=== PATIENT | male | born 1945 | race Caucasian/White ===

== ENCOUNTER → 2018-05-17 | Outpatient (CLI) | payer MEDICARE, BC ==
[~2018-05-17] MED LIST: AMOX1TAB3 PO; ASA; ASP325 PO; ATR10 PO; AVADART; AVADART PO; DOFE500C3 PO; DUTA0.5C4; LIPITOR; LOR5/325 PO; METO50TA19 PO; OMEG-23 PO; WARF2.5T62 PO
--- NOTE | 2018-05-17 15:05 | RADIOLOGY IMAGING REPORT ---
FACILITY: PATIENT NAME: Jose Alejandro Sales : 1945 MR: [id number] V: [id number] EXAM DATE: ORDERING PHYSICIAN: JEANNINE ANTHONY TECHNOLOGIST: [place]: [facility] [place]: Jose Alejandro Sales : 1945 Visit/Account:[id number] Date of Sevice: 05/17/2018 EXAMINATION: Right hand radiographs 2 views HISTORY: Right hand pain proximal to right 1st finger COMPARISON: None. FINDINGS: PA, lateral and oblique views of the right hand are obtained. Bones: No acute fracture or dislocation. Joint spaces: Negative. Hardware: None. Alignment: Normal. Soft tissues: Negative. IMPRESSION: No acute right hand fracture. Report Dictated By: Chitra Son MD at 05/17/2018 2:59 PM Report E-Signed By: Chitra Son MD at 05/17/2018 3:00 PM WSN:[email or web address]
== END ==
LOC: RAD 14:16
PROVIDERS: ATTEND Nurse Practitioner Family
DX: M79.641 Pain in right hand (principal)

== ENCOUNTER 2018-07-24 08:39 | Observation (INO) | payer MEDICARE, BC ==
[~2018-07-24] VITALS: Ht 177.8 cm; Wt 77.1 kg
[~2018-07-24 08:39] MED LIST changes: +ASCO-182 PO; +CHOL10005 PO; +L.AC1CAP6; +MULT1CAP59 PO; +SAW450CA3 PO
[2018-07-24] MEDS ORDERED: ACTIVATED CHAR/SORB 25GM/120ML PO ONE (08:40)
--- NOTE | 2018-07-24 08:54 | EKG ---
FACILITY: [facility] PATIENT NAME: MARTIR FIELD : [id number] MR: [id number] V: [id number] EXAM DATE: ORDERING PHYSICIAN: KIRAN LEUNG TECHNOLOGIST: LORNA Test Reason : OD Blood Pressure : / mmHG Vent. Rate : 072 BPM Atrial Rate : 072 BPM P-R Int : 204 ms QRS Dur : 094 ms QT Int : 432 ms P-R-T Axes : 053 001 044 degrees QTc Int : 473 ms Sinus rhythm Slightly prolonged QTc Nonspecific ST abnormality Abnormal ECG When compared with ECG of 31-MAY-2016 14:52, No significant change was found Confirmed by BETH PALMER ([id number]) on 07/24/2018 5:15:20 PM Referred By: MADHU Confirmed By:BETH PALMER
--- NOTE | 2018-07-24 09:12 | ER Report ---
History and Physical Time Seen By MD: 08:45 Hx. of Stated Complaint: patient reports taking his tikosyn .5mg. at 0630 then accidentally taking another at 0830. poison control recomended coming in for evaluation. no symptoms noticed at this time HPI/ROS CHIEF COMPLAINT: Accidental overdose HISTORY OF PRESENT ILLNESS: 9-year-old male on a cardiac dysrhythmic calcium channel concetta medications. Take 500 mg twice a day mistakenly took a 2nd dose within 1 hour. Patient called poison control poison control notified him to come to emergency emergently to the emergency department due to the fact this can cause torsade de pointes and other cardiac abnormalities dysrhythmias essentially needing activated charcoal. Patient has no symptoms at time of arrival no shortness of breath nausea vomiting diarrhea fever chills no chest pain or palpitations. Patient on arrival was given activated charcoal emergently. Patient has no additional complaints REVIEW OF SYSTEMS: Respiratory: No cough, no dyspnea. Cardiovascular: No chest pain, no palpitations. Gastrointestinal: No vomiting, no abdominal pain. Musculoskeletal: No back pain. Remainder of the 14 system rev: Yes Allergies: Coded Allergies: Sulfa (Sulfonamide Antibiotics) (Verified Allergy, Mild, 05/31/16) aspirin (Verified Allergy, Mild, 05/31/16) caffeine (Verified Allergy, Mild, 05/31/16) orphenadrine (Verified Allergy, Mild, 05/31/16) flecainide (Unverified Allergy, Unknown, 07/17/18) Uncoded Allergies: ERYTHRYOMYCIN (Allergy, Mild, 03/14/08) Home Meds Reported Medications Cholecalciferol (Vitamin D3) (VITAMIN D3) Unknown Strength Tablet, PO, TAB 07/17/18 Ascorbic Acid (VITAMIN C) Unknown Strength Tablet, PO, TAB 07/17/18 L.acidoph & Paracasei,B.lactis (Probiotic) Unknown Strength Capsule 07/17/18 Saw [place] Fruit (SAW PALMETTO) Unknown Strength Capsule, PO, CAPSULE 07/17/18 Multivitamin (MULTIVITAMINS) Unknown Strength Capsule, PO, CAPSULE 07/17/18 Metoprolol Succinate (METOPROLOL SUCCINATE) 50 Mg Tab.er.24h, 1 TAB PO QDAY PRN for FEELS HIS FLUTTER, TAB 05/31/16 Dutasteride (Dutasteride) 0.5 Mg Capsule, QDAY 05/31/16 Dofetilide (TIKOSYN) 500 Mcg Capsule, 500 MCG PO DAILY, CAPSULE 06/02/13 [place]-3 Fatty Acids/Fish Oil (FISH OIL 1,000 MG SOFTGEL) 1 Each Capsule, 1 EACH PO BID, CAPSULE 06/02/13 Warfarin Sodium (COUMADIN) 2.5 Mg Tablet, 5 MG PO QDAY It is very important that you take your coumadin exactly as prescribed, have blood work to monitor your PT/INR values, and follow up with your health care provider as prescribed. Diet and medication can affect the PT/INR level. Keep your diet pretty much the same day to day. Many foods contain Vitamin K which helps blood to clot and can affect the way your coumadin works. You don't need to avoid foods that have Vitamin K, but you do need to eat about the same amount of them every day. Be sure to tell your provider before changing your diet for anyreason (weight loss, illness, etc.) Do not start or discontinue any medications, prescribed or over the counter, except on the advise of your provider orpharmacist. Coumadin (Warfarin) increases the risk of bleeding. 5 MG 5 DAYS, AND 2.5 MON AND FRI 07/21/12 [Avadart] No Conflict Check, 0.5 MG PO DAILY, 0 Refills 08/18/08 Atorvastatin (Lipitor) 10 Mg Tab, 10 MG PO PRN, 0 Refills 08/18/08 Reviewed Nurses Notes: Yes Old Medical Records Reviewed: Yes Hx Smoking: No Hx Substance Use Disorder: No Hx Alcohol Use: No Constitutional Vital Sign - Last 24 Hours 07/24/18 07/24/18 07/24/18 07/24/18 08:42 08:43 08:54 09:00 Temp 98.2 Pulse 76 67 Resp 16 11 B/P (MAP) 173/95 173/95 (121) 164/92 (116) Pulse Ox 97 98 O2 Delivery Room Air 07/24/18 07/24/18 07/24/18 07/24/18 09:09 09:29 09:30 09:44 Pulse 59 55 54 Resp 21 21 11 B/P (MAP) 138/81 (100) Pulse Ox 95 93 91 07/24/18 07/24/18 07/24/18 07/24/18 09:59 10:00 10:14 10:29 Pulse 54 55 56 Resp 9 13 11 B/P (MAP) 129/94 (106) Pulse Ox 94 93 93 07/24/18 10:30 B/P (MAP) 140/85 (103) Physical Exam General Appearance: The patient is alert, has no immediate need for airway pr otection and no current signs of toxicity. [ ] Eyes: Pupils equal and round no injection. Respiratory: Chest is non tender, lungs are clear to auscultation. Cardiac: regular rate and rhythm [ ] Gastrointestinal: Abdomen is soft and non tender, no masses, bowel sounds normal. Musculoskeletal: Neck: Neck is supple and non tender. Extremities have full range of motion and are non tender. Skin: No rashes or lesions. [ ] DIFFERENTIAL DIAGNOSIS: After history and physical exam differential diagnosis was considered for cardiac dysrhythmia cardiac abnormalities Medical Decision Making Data Points Result Diagram: 07/24/18 0000 07/24/18 0000 Laboratory Hematology Test 07/24/18 00:00 Red Blood Count 5.56 M/uL (4.00-5.60) Mean Corpuscular Volume 86.7 fL (80.0-96.0) Mean Corpuscular Hemoglobin 29.3 pg (26.0-33.0) Mean Corpuscular Hemoglobin Concent 33.8 g/dL (32.0-36.0) Red Cell Distribution Width 12.9 % (11.5-14.5) Mean Platelet Volume 7.9 fL (7.2-11.1) Neutrophils (%) (Auto) 51.1 % (39.4-72.5) Lymphocytes (%) (Auto) 33.4 % (17.6-49.6) Monocytes (%) (Auto) 11.5 % (4.1-12.4) Eosinophils (%) (Auto) 2.9 % (0.4-6.7) Basophils (%) (Auto) 1.1 % (0.3-1.4) Nucleated RBC Relative Count (auto) 0.1 /100WBC Neutrophils # (Auto) 2.4 K/uL (2.0-7.4) Lymphocytes # (Auto) 1.5 K/uL (1.3-3.6) Monocytes # (Auto) 0.5 K/uL (0.3-1.0) Eosinophils # (Auto) 0.1 K/uL (0.0-0.5) Basophils # (Auto) 0.1 K/uL (0.0-0.1) Nucleated RBC Absolute Count (auto) 0.00 K/uL Sodium Level 139 mmol/L (137-145) Potassium Level 3.7 mmol/L (3.5-5.0) Chloride Level 105 mmol/L (98-107) Carbon Dioxide Level 23 mmol/L (22-30) Blood Urea Nitrogen 15 mg/dl (9-21) Creatinine 1.00 mg/dl (0.66-1.25) Glomerular Filtration Rate Calc > 60.0 Random Glucose 98 mg/dl (75-110) Calcium Level 9.1 mg/dl (8.4-10.2) Total Bilirubin 1.1 mg/dl (0.2-1.3) Aspartate Amino Transf (AST/SGOT) 48 U/L (0-35) Alanine Aminotransferase (ALT/SGPT) 48 U/L (0-56) Alkaline Phosphatase 94 U/L (0-126) Troponin I < 0.012 ng/ml Total Protein 7.3 g/dl (6.3-8.2) Albumin 4.7 g/dl (3.5-5.0) Chemistry Test 07/24/18 00:00 White Blood Count 4.6 k/uL (4.5-11.0) Red Blood Count 5.56 M/uL (4.00-5.60) Hemoglobin 16.3 g/dL (14.0-18.0) Hematocrit 48.2 % (42.0-52.0) Mean Corpuscular Volume 86.7 fL (80.0-96.0) Mean Corpuscular Hemoglobin 29.3 pg (26.0-33.0) Mean Corpuscular Hemoglobin Concent 33.8 g/dL (32.0-36.0) Red Cell Distribution Width 12.9 % (11.5-14.5) Platelet Count 197 K/uL (150-450) Mean Platelet Volume 7.9 fL (7.2-11.1) Neutrophils (%) (Auto) 51.1 % (39.4-72.5) Lymphocytes (%) (Auto) 33.4 % (17.6-49.6) Monocytes (%) (Auto) 11.5 % (4.1-12.4) Eosinophils (%) (Auto) 2.9 % (0.4-6.7) Basophils (%) (Auto) 1.1 % (0.3-1.4) Nucleated RBC Relative Count (auto) 0.1 /100WBC Neutrophils # (Auto) 2.4 K/uL (2.0-7.4) Lymphocytes # (Auto) 1.5 K/uL (1.3-3.6) Monocytes # (Auto) 0.5 K/uL (0.3-1.0) Eosinophils # (Auto) 0.1 K/uL (0.0-0.5) Basophils # (Auto) 0.1 K/uL (0.0-0.1) Nucleated RBC Absolute Count (auto) 0.00 K/uL Glomerular Filtration Rate Calc > 60.0 Calcium Level 9.1 mg/dl (8.4-10.2) Total Bilirubin 1.1 mg/dl (0.2-1.3) Aspartate Amino Transf (AST/SGOT) 48 U/L (0-35) Alanine Aminotransferase (ALT/SGPT) 48 U/L (0-56) Alkaline Phosphatase 94 U/L (0-126) Troponin I < 0.012 ng/ml Total Protein 7.3 g/dl (6.3-8.2) Albumin 4.7 g/dl (3.5-5.0) ED Course/Re-evaluation ED Course ED clinical course 72-year-old male came emergency department today after taking a calcium channel concetta for his abnormal cardiac rate and rhythm due to much at one time which is toxic cause QT prolongation and possibly torsades sent here by poison control and evaluation received activated charcoal his QTC has elongated since she's been here not significantly and not a critical matter but deftly more than one was when he arrived we'll admit him today for an observation serial EKGs and follow up with hospitalist Decision to Disposition Date: Jul 24, 2018 Decision to Disposition Time: 12:06 Depart Departure Latest Vital Signs Vital Signs Date Time Temp Pulse Resp B/P (MAP) Pulse Ox O2 Delivery O2 Flow Rate FiO2 07/24/18 10:30 140/85 (103) 07/24/18 10:29 56 11 93 07/24/18 08:42 98.2 Room Air Impression: Primary Impression: Dysrhythmia Condition: Improved Disposition: Admitted from ER Referrals: JEANNINE ANTHONY (PCP) KIRAN LEUNG MD Jul 24, 2018 09:12
[2018-07-24 09:17] LABS: PLATELET COUNT, AUTOMATED 197 K/uL (150-450)
--- NOTE | 2018-07-24 10:48 | EKG ---
[place] [facility] [place] MARTIR FIELD : [id number] MR: [id number] V: [id number] EXAM DATE: ORDERING PHYSICIAN: KIRAN LEUNG TECHNOLOGIST: LORNA Test Reason : REPEAT Blood Pressure : / mmHG Vent. Rate : 057 BPM Atrial Rate : 057 BPM P-R Int : 216 ms QRS Dur : 092 ms QT Int : 496 ms P-R-T Axes : 035 -05 011 degrees QTc Int : 482 ms Sinus bradycardia with 1st degree AV block Prolonged QT Abnormal ECG When compared with ECG of 24-JUL-2018 08:39, No significant change was found Confirmed by BETH PALMER ([id number]) on 07/24/2018 5:15:44 PM Referred By: MADHU Confirmed By:BETH PALMER
--- NOTE | 2018-07-24 13:06 | EKG ---
FACILITY: [facility] PATIENT NAME: MARTIR FIELD : [id number] MR: [id number] V: [id number] EXAM DATE: ORDERING PHYSICIAN: KIRAN LEUNG TECHNOLOGIST: LORNA Test Reason : REPEAT Blood Pressure : / mmHG Vent. Rate : 064 BPM Atrial Rate : 064 BPM P-R Int : 206 ms QRS Dur : 092 ms QT Int : 470 ms P-R-T Axes : 047 -01 007 degrees QTc Int : 484 ms Sinus rhythm Nonspecific ST abnormality Prolonged QT Abnormal ECG When compared with ECG of 24-JUL-2018 10:34, No significant change was found Confirmed by BETH PALMER ([id number]) on 07/24/2018 5:16:03 PM Referred By: MADHU Confirmed By:BETH PALMER
[2018-07-24 13:12] VITALS: BP 158/90
[2018-07-24] MEDS ORDERED: FLUSH 10 ML SYR IVP PRN (13:40)
--- NOTE | 2018-07-24 13:52 | History & Physical ---
History of Present Illness Chief Complaint "I took my Tikosyn twice this morning" History of Present Illness 72yo male with PMHx significant for chronic atrial fibrillation s/p ablation x2. He reports he has been fairly well maintained on Tikosyn 500mcg PO BID for several years. This morning he states he took his AM dose at 0630hrs and then did his usual exercise. He then went to his medication box thinking he had not taken his morning dose and took tomorrow mornings dose at ~0800hrs. He contacted Poison Control and was referred to the ER for evaluation. Poison Control has recommended oral charcoal and close monitoring on telemetry for any dysrhythmias/QT prolongation. At present he denies any complaints. No CP/SOB/N/V. His EKGs have shown on minimal QTc prolongation into 470-485msec range. History Problems: (1) PAROXYSMAL ATRIAL FIBRILLATION Status: Chronic (2) S/P ablation of atrial fibrillation Status: Resolved (3) BPH (benign prostatic hyperplasia) Status: Chronic Home Meds Reported Medications Cholecalciferol (Vitamin D3) (VITAMIN D3) Unknown Strength Tablet, PO, TAB 07/17/18 Ascorbic Acid (VITAMIN C) Unknown Strength Tablet, PO, TAB 07/17/18 L.acidoph & Paracasei,B.lactis (Probiotic) Unknown Strength Capsule 07/17/18 Saw [place] Fruit (SAW PALMETTO) Unknown Strength Capsule, PO, CAPSULE 07/17/18 Multivitamin (MULTIVITAMINS) Unknown Strength Capsule, PO, CAPSULE 07/17/18 Metoprolol Succinate (METOPROLOL SUCCINATE) 50 Mg Tab.er.24h, 1 TAB PO QDAY PRN for FEELS HIS FLUTTER, TAB 05/31/16 Dutasteride (Dutasteride) 0.5 Mg Capsule, QDAY 05/31/16 Dofetilide (TIKOSYN) 500 Mcg Capsule, 500 MCG PO DAILY, CAPSULE 06/02/13 [place]-3 Fatty Acids/Fish Oil (FISH OIL 1,000 MG SOFTGEL) 1 Each Capsule, 1 EACH PO BID, CAPSULE 06/02/13 Warfarin Sodium (COUMADIN) 2.5 Mg Tablet, 5 MG PO QDAY It is very important that you take your coumadin exactly as prescribed, have blood work to monitor your PT/INR values, and follow up with your health care provider as prescribed. Diet and medication can affect the PT/INR level. Keep your diet pretty much the same day to day. Many foods contain Vitamin K which helps blood to clot and can affect the way your coumadin works. You don't need to avoid foods that have Vitamin K, but you do need to eat about the same amount of them every day. Be sure to tell your provider before changing your diet for anyreason (weight loss, illness, etc.) Do not start or discontinue any medications, prescribed or over the counter, except on the advise of your provider orpharmacist. Coumadin (Warfarin) increases the risk of bleeding. 5 MG 5 DAYS, AND 2.5 MON AND FRI 07/21/12 [Avadart] No Conflict Check, 0.5 MG PO DAILY, 0 Refills 08/18/08 Atorvastatin (Lipitor) 10 Mg Tab, 10 MG PO PRN, 0 Refills 08/18/08 Allergies: Coded Allergies: Sulfa (Sulfonamide Antibiotics) (Verified Allergy, Mild, 05/31/16) aspirin (Verified Allergy, Mild, 05/31/16) caffeine (Verified Allergy, Mild, 05/31/16) orphenadrine (Verified Allergy, Mild, 05/31/16) flecainide (Unverified Allergy, Unknown, 07/17/18) Uncoded Allergies: ERYTHRYOMYCIN (Allergy, Mild, 03/14/08) Hx Smoking: Yes Smoking Status: Former Smoker Hx Alcohol Use: No Hx Substance Use Disorder: No History of IV Drug Use: No Review of Systems Neurological: No Syncope, No Weakness Cardiovascular: No Chest Pain, No Palpitations Respiratory: No Shortness of Breath Gastrointestinal: No Nausea, No Vomiting Exam Vital Signs Vital Signs Date Time Temp Pulse Resp B/P (MAP) Pulse Ox O2 Delivery O2 Flow Rate FiO2 07/24/18 13:12 98.2 54 16 158/90 (112) 96 Room Air General Appearance: Alert, Awake Neuro: No Gross deficits ENT: Oropharynx Clear Neck: No Masses Cardiovascular: Regular Rate and Rhythm Respiratory: Clear to Auscultation Chest: No Tenderness GI: Abd Soft and Non-Tender Extremities: Warm, Pulses (PT normal), Perfused Integumentary: Skin Intact without Lesion / Mass Psych: Alert & Oriented X3 Medical Decision Making Data Points Result Diagram: 07/24/18 0000 2/27/19 0000 Item Value Date Time Albumin 4.7 g/dl 07/24/18 Total Protein 7.3 g/dl 07/24/18 Troponin I < 0.012 ng/ml 07/24/18 Alkaline Phosphatase 94 U/L 07/24/18 Alanine Aminotransferase (ALT/SGPT) 48 U/L 07/24/18 Aspartate Amino Transf (AST/SGOT) 48 U/L H 07/24/18 Total Bilirubin 1.1 mg/dl 07/24/18 Calcium Level 9.1 mg/dl 07/24/18 Assessment and Plan Problems: (1) Accidental overdose Status: Acute Assessment & Plan: He has mistakenly taken Tikosyn 500mcg x2 in short time frame. At present his QTc is just slightly prolonged. He has received the gut decontamination with charcoal/sorbitol. Will monitor on telemetry. Will check EKG to watch QTc periodically. Electrolytes are unremarkable. Will resume his Tikosyn in the AM. (2) PAROXYSMAL ATRIAL FIBRILLATION Status: Chronic Assessment & Plan: He is currently in sinus rhythm. It sounds like he has done well with the Tikosyn. He understands the need to take it at specified interval and believes he will not make the mistake again. Will continue his warfarin (5mg daily except 2.5mg on -) and monitor Protime/INR. (3) BPH (benign prostatic hyperplasia) Status: Chronic Assessment & Plan: Will continue his Avodart 0.5mg daily. Venous Thromboembolism Antithrombotics Is Pt On Any Antithrombotics?: Yes Exam Sepsis Risk: No Definite Risk BETH PALMER MD Jul 24, 2018 13:52
[2018-07-24 14:30] LABS: INR 2.21
[2018-07-24] MEDS ORDERED: WARFARIN SOD 2.5 MG TAB PO ONE ×2 (15:30→21:00)
[2018-07-24 16:15] VITALS: BP 132/79
--- NOTE | 2018-07-24 16:24 | EKG ---
FACILITY: [facility] - [place] PATIENT NAME: MARTIR FIELD : [id number] MR: [id number] V: [id number] EXAM DATE: ORDERING PHYSICIAN: BETH PALMER TECHNOLOGIST: LISA Test Reason : OD Blood Pressure : / mmHG Vent. Rate : 057 BPM Atrial Rate : 057 BPM P-R Int : 218 ms QRS Dur : 096 ms QT Int : 474 ms P-R-T Axes : 049 -11 017 degrees QTc Int : 461 ms Sinus bradycardia with 1st degree AV block Nonspecific ST abnormality Abnormal ECG QTc is slightly shorter When compared with ECG of 24-JUL-2018 11:44, No significant change was found Confirmed by BETH PALMER ([id number]) on 07/24/2018 5:16:47 PM Referred By: ESTELA Confirmed By:BETH PALMER
[2018-07-24 19:24] VITALS: BP 142/88
[2018-07-24] MEDS ORDERED: FLUT16SP19 NS (20:34)
[2018-07-24] MEDS ORDERED: METO-253 PO (20:34)
[2018-07-24] MEDS ORDERED: ATORVASTATIN 10 MG TAB PO SCH (21:00)
[2018-07-24 22:49] VITALS: BP 151/86
[2018-07-25 04:23] VITALS: BP 148/84
[2018-07-25 07:09] VITALS: BP 155/95
[2018-07-25 08:29] VITALS: Ht 177.8 cm; Wt 77.1 kg
[2018-07-25] MEDS ORDERED: DUTASTERIDE 0.5 MG CAP PO SCH (09:00)
[2018-07-25] MEDS ORDERED: DOFETILIDE 500 MCG PO SCH (09:00)
--- NOTE | 2018-07-25 10:00 | Hospitalist Depart ---
Discharge Summary Reason for Hosp/Final Diag: (1) Accidental overdose Status: Acute Hospital Course & Plan: He has mistakenly taken Tikosyn 500mcg x2 in short time frame. Upon admission, his QTc is just slightly prolonged. He received the gut decontamination with charcoal/sorbitol. His telemetry was monitored without w orrisome findings. His EKG was watched to monitor QTc periodically throughout admission. Electrolytes are unremarkable. Will resume his Tikosyn this morning. (2) PAROXYSMAL ATRIAL FIBRILLATION Status: Chronic Hospital Course & Plan: He is currently in sinus rhythm. It sounds like he has done well with the Tikosyn. He understands the need to take it at specified interval and believes he will not make the mistake again. Will continue his warfarin (5mg daily except 2.5mg on ). (3) BPH (benign prostatic hyperplasia) Status: Chronic Hospital Course & Plan: Will continue his Avodart 0.5mg daily. Departure Latest Vital Signs Vital Signs 07/25/18 07/25/18 07/25/18 07:09 07:35 08:10 Temp 97.8 Pulse 57 Resp 16 B/P (MAP) 155/95 (115) Pulse Ox 97 O2 Delivery Room Air Weight (Pounds): 170 Result Diagram: 07/24/18 0000 07/24/18 0000 Condition: Improved Discharge: Home, Self Care Discharge Instructions Home Meds Reported Medications Metoprolol Tartrate (METOPROLOL TARTRATE) 50 Mg Tab, 50 MG PO BID 07/24/18 Fluticasone Prop 50 Mcg Ns (FLONASE 50 MCG NS) 16 Gm [place].susp, 2 SPRAYS NS QDAY 07/24/18 Cholecalciferol (Vitamin D3) (VITAMIN D3) Unknown Strength Tablet, PO, TAB 07/17/18 Ascorbic Acid (VITAMIN C) Unknown Strength Tablet, PO, TAB 07/17/18 L.acidoph & Paracasei,B.lactis (Probiotic) Unknown Strength Capsule 07/17/18 Saw [place] Fruit (SAW PALMETTO) Unknown Strength Capsule, PO, CAPSULE 07/17/18 Multivitamin (MULTIVITAMINS) Unknown Strength Capsule, PO, CAPSULE 07/17/18 Dutasteride (Dutasteride) 0.5 Mg Capsule, QDAY 05/31/16 Dofetilide (TIKOSYN) 500 Mcg Capsule, 500 MCG PO BID, CAPSULE 06/02/13 [place]-3 Fatty Acids/Fish Oil (FISH OIL 1,000 MG SOFTGEL) 1 Each Capsule, 1 EACH PO BID, CAPSULE 06/02/13 Warfarin Sodium (COUMADIN) 2.5 Mg Tablet, 5 MG PO QDAY It is very important that you take your coumadin exactly as prescribed, have blood work to monitor your PT/INR values, and follow up with your health care provider as prescribed. Diet and medication can affect the PT/INR level. Keep your diet pretty much the same day to day. Many foods contain Vitamin K which helps blood to clot and can affect the way your coumadin works. You don't need to avoid foods that have Vitamin K, but you do need to eat about the same amount of them every day. Be sure to tell your provider before changing your diet for anyreason (weight loss, illness, etc.) Do not start or discontinue any medications, prescribed or over the counter, except on the advise of your provider orpharmacist. Coumadin (Warfarin) increases the risk of bleeding. 5 MG 5 DAYS, AND 2.5 MON AND FRI 07/21/12 Atorvastatin (Lipitor) 10 Mg Tab, 10 MG PO PRN, 0 Refills 08/18/08 Discontinued Reported Medications Metoprolol Succinate (METOPROLOL SUCCINATE) 50 Mg Tab.er.24h, 1 TAB PO QDAY PRN for FEELS HIS FLUTTER, TAB 05/31/16 [Avadart] No Conflict Check, 0.5 MG PO DAILY, 0 Refills 08/18/08 Diet: Regular Activity: As Tolerated Special Instructions: Take your medications as prescribed. Resume usual activities as tolerated. Copies to: JEANNINE ANTHONY ; Venous Thromboembolism Antithrombotics Is Pt On Any Antithrombotics?: Yes SHONA OCONNELL Jul 25, 2018 10:00
[2018-07-25] MEDS ORDERED: WARFARIN SOD 5 MG TAB PO SCH ×2 (13:00→21:00)
[2018-07-26] MEDS ORDERED: INFLUENZA VIRUS VAC 0.5ML SYR IM ONLY ONE (09:00)
[2018-07-26] MEDS ORDERED: WARFARIN SOD 2.5 MG TAB PO SCH (21:00)
== END 2018-07-25 08:52 | disposition home or self-care (01) ==
LOC: ER 08:53 → UNDOADMOB 12:19 → INTOOBSV 12:19 → MED 12:19 → UNDODISOB 07-25 10:00
PROVIDERS: ADMIT Internal Medicine; ATTEND Internal Medicine
DX: T46.2X1A Poisoning by other antidysrhythmic drugs, accidental (unintentional), initial encounter (principal); I49.9 Cardiac arrhythmia, unspecified; I48.0 Paroxysmal atrial fibrillation; Z79.01 Long term (current) use of anticoagulants; N40.0 Benign prostatic hyperplasia without lower urinary tract symptoms
CPT/HCPCS: 36415; 84484; 85025; 85610; 93005; 99284; A9270; G0378; 82040; 82247; 82310; 82374; 82435; 82565; 82947; 84075; 84132; 84155; 84295; 84450; 84460; 84520

== ENCOUNTER 2018-09-18 00:03 | Day surgery (SDC) | payer MEDICARE, BC ==
[2018-07-25 08:29] VITALS: Ht 177.8 cm; Wt 73.5 kg
[2018-09-18] VITALS (7 sets, daily range): BP systolic 93–181; BP diastolic 59–89
[~2018-09-18] VITALS: Ht 177.8 cm; Wt 73.5 kg
[~2018-09-18 00:03] MED LIST changes: -DUTA0.5C4; +DUTA0.5C4 PO; +FLUT16SP19 NS; +L.AC1CAP6 PO; +METO-253 PO; +WARF5TAB23 PO
[2018-09-18] MEDS ORDERED: LIDOCAINE/SOD BICARB 8.4% SYR ONE (06:59)
[2018-09-18] MEDS ORDERED: PROPOFOL EMUL(*) 10MG/ML 20 ML 40 ML ONE (07:18)
[2018-09-18] MEDS ORDERED: LIDOCAINE MPF 1% 5 ML VIAL ONE (07:18)
[2018-09-18] MEDS ORDERED: LIDOCAINE/SOD BICARB 8.4% SYR ID ONE (07:25)
[2018-09-18] MEDS ORDERED: NORMOSOL R SOLN(*) 1000 ML BAG 1,000 ML IV PRN (07:25)
--- NOTE | 2018-09-18 08:43 | Short(Outpt) Discharge Summary ---
Discharge Summary Reason for Hosp/Final Diag: (1) History of colon polyps Status: Chronic Hospital Course & Plan: Colonoscopy with polypectomy x2 completed without problems. Departure Discharge to: Home, Self Care Discharge Instructions Home Meds Reported Medications Warfarin Sodium (WARFARIN SODIUM) 5 Mg Tablet, 2.5 MG PO QODAY, TAB TAKES 2.5 MG WARFARIN ON MWF AND 5 MG ON OTHER DAYS FLOREZ,SA,,TH. 09/02/18 Saw [place] Fruit (SAW PALMETTO) 450 Mg Capsule, 450 MG PO DAILY, CAPSULE 09/02/18 Multivitamin (MULTIVITAMINS) 1 Each Capsule, 1 EACH PO DAILY, CAPSULE 09/02/18 L.acidoph & Paracasei,B.lactis (Probiotic) 1 Each Capsule, 1 CAP PO DAILY 09/02/18 Cholecalciferol (Vitamin D3) (VITAMIN D3) 1,000 Unit Tablet, 1000 UNIT PO DAILY, TAB 09/02/18 Ascorbic Acid (VITAMIN C) 500 Mg Tablet, 100 MG PO DAILY, TAB 09/02/18 Metoprolol Tartrate (METOPROLOL TARTRATE) 50 Mg Tab, 50 MG PO DAILY PRN for TACHYCARDIA 07/24/18 Fluticasone Prop 50 Mcg Ns (FLONASE 50 MCG NS) 16 Gm [place].susp, 2 SPRAYS NS QDAY PRN for NASAL STUFFINESS 07/24/18 Dutasteride (Dutasteride) 0.5 Mg Capsule, 1 TAB PO QDAY 05/31/16 Dofetilide (TIKOSYN) 500 Mcg Capsule, 500 MCG PO BID, CAPSULE 06/02/13 [place]-3 Fatty Acids/Fish Oil (FISH OIL 1,000 MG SOFTGEL) 1 Each Capsule, 1 EACH PO BID, CAPSULE 06/02/13 Warfarin Sodium (COUMADIN) 2.5 Mg Tablet, 5 MG PO QODAY It is very important that you take your coumadin exactly as prescribed, have blood work to monitor your PT/INR values, and follow up with your health care provider as prescribed. Diet and medication can affect the PT/INR level. Keep your diet pretty much the same day to day. Many foods contain Vitamin K which helps blood to clot and can affect the way your coumadin works. You don't need to avoid foods that have Vitamin K, but you do need to eat about the same amount of them every day. Be sure to tell your provider before changing your diet for anyreason (weight loss, illness, etc.) Do not start or discontinue any medications, prescribed or over the counter, except on the advise of your provider orpharmacist. Coumadin (Warfarin) increases the risk of bleeding. 5 MG 5 DAYS, AND 2.5 MON AND FRI 07/21/12 Atorvastatin (Lipitor) 10 Mg Tab, 10 MG PO DAILY, 0 Refills 08/18/08 Diet: Regular Activity: As Tolerated Special Instructions: Your colonoscopy was completed without problems and your prep was excellent (Good Job!!). I removed 2 polyps from your colon and they were sent to pathology. My office will call you in the next week or two to let you know what the polyps are but, in any case, your next colonoscopy should be in 5 years. You may restart your coumadin (warfarin) today as it will take 5-7 days to become therapeutic. FLEX CONNOLLY MD Sep 18, 2018 08:43
== END 2018-09-18 09:50 | disposition home or self-care (01) ==
LOC: OR 00:03
PROVIDERS: ATTEND Surgery
DX: Z12.11 Encounter for screening for malignant neoplasm of colon (principal); Z86.010 Personal history of colon polyps; D12.4 Benign neoplasm of descending colon; D12.3 Benign neoplasm of transverse colon
CPT/HCPCS: 00811; 45385; 88305; J2001; J2704